=== PATIENT | male | born 1985 | race Caucasian/White ===

== ENCOUNTER 2018-09-10 10:49 | Emergency (ER) | payer OTHER ==
[~2018-09-10] VITALS: Ht 185.4 cm; Wt 113.3 kg
[2018-09-10 11:15] VITALS: TEMP 99.2
[2018-09-10 12:00] LABS: COLLECTION METHOD CLEAN CATCH
[2018-09-10 12:25] LABS: MUCOUS Present /lpf; PH 5 (5-8); SQUAMOUS EPITHELIAL None Seen /hpf; URINE APPEARANCE Clear; URINE BACTERIA None Seen /hpf; URINE BILIRUBIN Negative (NEGATIVE); URINE BLOOD Negative (NEGATIVE); URINE COLOR Yellow; URINE GLUCOSE Negative (NEGATIVE); URINE KETONE Negative (NEGATIVE); URINE LEUKOCYTE ESTERASE Negative (NEGATIVE); URINE NITRATE Negative (NEGATIVE); URINE PROTEIN(semi-quant) Negative (NEGATIVE); URINE RBC None Seen /hpf; URINE UROBILINOGEN Negative (NEGATIVE)
[2018-09-10 14:05] VITALS: BP 128/93; PULSE 82
== END 2018-09-10 14:05 | disposition home or self-care (01) ==
LOC: COL.ER 10:49
PROVIDERS: Nurse Practitioner
DX: I86.1 Scrotal varices (principal); Z98.52 Vasectomy status

== ENCOUNTER → 2019-12-17 | Outpatient (CLI) | payer OTHER | LOC: ZCOL.LAB 16:21 | DX: U07.1 COVID-19 (principal) ==